=== PATIENT | male | born 1975 | race Caucasian/White ===

== ENCOUNTER 2021-06-17 17:41 | Emergency (ER) | payer BC ==
[2021-06-17] MEDS ORDERED: Albuterol/Ipratropium 3.0-0.5 MG/3 ML Neb Soln NEB ONE (17:47)
[2021-06-17] MEDS ORDERED: methylPREDNISolone Sodium Succinate 125 MG/2 ML SDV IVPUSH ONE (18:28)
[2021-06-17 18:43] LABS: CORONAVIRUS COVID-19 NAA NEGATIVE (NEGATIVE)
[2021-06-17] MEDS ORDERED: Albuterol 0.083% 2.5 MG/3 ML Neb Soln NEB ONE (19:17)
== END 2021-06-17 20:19 | disposition home or self-care (01) ==
LOC: JP.ED 17:41
DX: J45.901 Unspecified asthma with (acute) exacerbation (principal); Z88.8 Allergy status to other drugs, medicaments and biological substances; Z20.822 Contact with and (suspected) exposure to COVID-19
CPT/HCPCS: 0241U; 71046; 94640; 96374; 99285; J2930; 99283; J7620-GY

== ENCOUNTER 2023-06-11 06:18 | Day surgery (SDC) | payer BC ==
[2023-06-11] MEDS: Lactated Ringers 1,000 ML IV SCH (06:52)
[2023-06-11] MEDS ORDERED: Propofol 200 MG/20 ML SDV ONE (07:23)
[2023-06-11] MEDS ORDERED: Midazolam 1 MG/ML 2 ML SDV ONE (07:23)
[2023-06-11] MEDS ORDERED: fentaNYL 100 MCG/2 ML SDV ONE (07:23)
== END 2023-06-11 08:54 | disposition home or self-care (01) ==
LOC: JP.SDS 06:18
PROVIDERS: ATTEND Family Medicine
DX: Z12.11 Encounter for screening for malignant neoplasm of colon (principal); G47.33 Obstructive sleep apnea (adult) (pediatric); I48.91 Unspecified atrial fibrillation; Z79.899 Other long term (current) drug therapy; Z98.890 Other specified postprocedural states
CPT/HCPCS: 45378; J2250; J2704; J3010; J7120